=== PATIENT | female | born 1990 | race Caucasian/White ===

== ENCOUNTER 2017-10-25 13:15 | Emergency (ER) | payer BC, OTHER ==
[~2017-10-25] VITALS: Ht 147.3 cm; Wt 69.0 kg
--- NOTE | ~2017-10-25 | EKG ---
[address] [address] ELECTROCARDIOGRAM REPORT Name: JEROME MCKEON Room #: [facility] Mcguire#: [id number] Admission: 10/25/17 Attend Phys: Discharge: 10/25/17 Date of : 89 Report #: [id number] THIS REPORT FOR: //name// [facility] ED Test Date: 2017-10-25 Test Time: 13:39:53 Pat Name: JEROME MCKEON Department: Room: Gender: F [employer]: [id number] : 1990 Requested By: Carlo Rizvi Order Number: [id number] MD: Dayday Mendez Measurements Intervals [place] Rate: 73 P: 12 ID: [id number] QRS: 54 QRSD: 95 T: 56 QT: 380 QTc: 419 Interpretive Statements Sinus rhythm No previous ECG available for comparison Electronically Signed On 10-25-2017 16:50:12 [employer] by Dayday Mendez [email or web address] <ELECTRONICALLY SIGNED> By: Dayday Mendez MD 10/25/17 1650 [id number] [id number] Dayday Mendez MD /RAAD
[2017-10-25] MEDS ORDERED: PROGESTERONE100 MG PO (13:27)
[2017-10-25] MEDS ORDERED: VITAMIN D1000 UNI1 PO (13:27)
[2017-10-25 13:47] LABS: URINE BLOOD NEGATIVE (Negative); URINE COLOR YELLOW; URINE GLUCOSE-RANDOM* NEGATIVE (Negative); URINE KETONES TRACE (Negative); URINE NITRITE NEGATIVE (Negative); URINE PROTEIN (DIPSTICK) 1+ (Negative); URINE SPECIFIC GRAVITY >= 1.030 (1.005-1.035)
[2017-10-25 13:48] LABS: HEMATOCRIT 43.6 % (37.0-47.0); HEMOGLOBIN 15.2 gm/dL (12.0-15.0); MCH 29.4 pg (26.0-34.0); MCHC 34.8 g/dL (28.0-37.0); MCV 84.6 fL (80.0-100.0); PLATELET COUNT 277 thou/uL (150-400); RBC 5.16 mil/uL (4.20-5.00); RDW 12.4 % (10.5-14.5); WBC 18.5 thou/uL (4.0-11.0)
[2017-10-25 13:49] LABS: URINE BILIRUBIN NEGATIVE (Negative)
[2017-10-25 13:51] LABS: MANUAL DIFF YES
[2017-10-25 13:56] LABS: ANION GAP 11 mmol/L (7-16); BUN 15 mg/dL (7-18); CALCIUM 9.8 mg/dL (8.5-10.1); CHLORIDE 106 mmol/L (98-107); CO2 21 mmol/L (21-32); CREATININE 0.8 mg/dL (0.6-1.0); GLUCOSE 102 mg/dL (74-106); POTASSIUM 3.8 mmol/L (3.5-5.1); SODIUM 138 mmol/L (136-145)
[2017-10-25 13:56] LABS: SQUAMOUS 4-10 Moderate /LPF (0-3)
[2017-10-25 13:57] LABS: BACTERIA >30 Many /HPF (None Seen); CASTS None Seen /LPF (None Seen); CRYSTALS None Seen /LPF (None Seen); URINE RBC None Seen /HPF (0-2); URINE WBC 0-5 Rare /HPF (0-5)
[2017-10-25 14:05] LABS: TROPONIN-I < 0.04 ng/mL (<0.06)
[2017-10-25 14:20] LABS: ABSOLUTE NEUTROPHILS 16.3 thou/uL (1.4-8.2); TOTAL CELL COUNT 100
[2017-10-25 15:15] VITALS: BP 97/66
[2017-10-25] MEDS ORDERED: ONDANSETRON HCL4 M2 PO (20:05)
[2017-10-25] MEDS ORDERED: KEFLEX500 M1 PO (20:05)
== END 2017-10-25 15:22 | disposition home or self-care (01) ==
LOC: ER 13:15
PROVIDERS: Nurse Practitioner
DX: R55 Syncope and collapse (principal); R42 Dizziness and giddiness; R10.9 Unspecified abdominal pain

== ENCOUNTER 2017-10-25 18:20 | Emergency (ER) | payer BC, OTHER ==
[~2017-10-25] VITALS: Ht 147.3 cm; Wt 69.0 kg
[~2017-10-25 18:20] MED LIST: PROGESTERONE100 MG PO; VITAMIN D1000 UNI1 PO
[2017-10-25] MEDS ORDERED: ONDANSETRON HCL4 M2 PO (20:05)
[2017-10-25] MEDS ORDERED: KEFLEX500 M1 PO (20:05)
[2017-10-25 20:09] VITALS: BP 98/53
== END 2017-10-25 20:10 | disposition home or self-care (01) ==
LOC: ER 18:20
DX: N39.0 Urinary tract infection, site not specified (principal); R11.2 Nausea with vomiting, unspecified; R19.7 Diarrhea, unspecified